=== PATIENT | male | born 1965 | race Caucasian/White ===

== ENCOUNTER 2018-02-05 19:42 | Emergency (ER) | payer MEDICAID ==
[2018-02-05] MEDS ORDERED: fentaNYL 100 MCG/2 ML SDV IVPUSH ONE (19:49)
[2018-02-05] MEDS ORDERED: Ondansetron 4 MG/2 ML SDV IVPUSH ONE (20:07)
--- NOTE | 2018-02-05 20:08 | EDM.PDOC ---
ED HPI GENERAL MEDICAL PROBLEM - General Chief Complaint: Upper Extremity Injury/Pain Stated Complaint: SMASHED LEFT HAND Time Seen by Provider: 02/05/18 19:49 Source of Information: Reports: Patient History Limitations: Reports: No Limitations - History of Present Illness INITIAL COMMENTS - FREE TEXT/NARRATIVE: 52 y/o M presents with L arm/hand injury. Was working on moving an old combine. States the arm of the combine swung unexpectedly and struck in in the LUE. Primarily hit him in the left hand and wrist area. States his thumb and pinky finger were both forcibly bent back into a unnatural position. He pulled on the thumb and pinky to reduce them to a normal position. This was very painful. Continues to have severe pain at the base of the left thumb, base of the left pinky, and throughout the wrist area. Also has mild pain in left forearm. Denies additional injury. No numbness but has some tingling in the tip of the left thumb and pinky fingers. Able to move all fingers but has severe pain with left thumb and pinky movements. He was wearing a glove when the injury occurred. Tried to remove it but had severe pain so left glove in place. Denies head injury or any additional injury. He is right hand dominant. No recent illness. Left Hand Pain Score (Numeric/FACES): 10 - Related Data Allergies Allergy/AdvReac Type Severity Reaction Status Date / Time promethazine [From Phenergan] Allergy Bradycardia Verified 02/05/18 19:58 codeine AdvReac Nausea Verified 02/05/18 19:58 oxycodone [From OxyContin] AdvReac Nausea Verified 02/05/18 19:58 Home Meds: Home Meds Flecainide [Tambocor] 100 mg PO BID 02/05/18 [History] Ondansetron [Zofran ODT] 4 mg PO Q6H PRN #24 tab.dis 02/05/18 [Rx] oxyCODONE 5 mg PO 5XDAY PRN #24 tab 02/05/18 [Rx] Review of Systems - Review of Systems Review Of Systems: See Below Constitutional: Reports: No Symptoms Eyes: Reports: No Symptoms Ears: Reports: No Symptoms Nose: Reports: No Symptoms Mouth/Throat: Reports: No Symptoms Respiratory: Reports: No Symptoms Cardiovascular: Denies: Chest Pain GI/Abdominal: Denies: Abdominal Pain Musculoskeletal: Reports: Arm Pain, Hand Pain. Denies: Shoulder Pain Skin: Denies: Wound Neurological: Denies: Dizziness Psychiatric: Reports: No Symptoms ED EXAM, GENERAL - Physical Exam Exam: See Below Exam Limited By: No Limitations General Appearance: Alert, WD/WN, No Apparent Distress Eye Exam: Bilateral Eye: Normal Inspection Ears: Normal External Exam Nose: Normal Inspection Throat/Mouth: Normal Inspection, Normal Oropharynx, Normal Voice, No Airway Compromise Head: Atraumatic, Normocephalic Neck: Normal Inspection, Supple, Non-Tender, Full Range of Motion Respiratory/Chest: No Respiratory Distress, Lungs Clear, Normal Breath Sounds, Chest Non-Tender Cardiovascular: Normal Peripheral Pulses, Regular Rate, Rhythm, No Edema, No Murmur GI/Abdominal: Soft, Non-Tender, No Distention. No: Rebound Back Exam: Normal Inspection. No: Vertebral Tenderness Extremities: Other (LUE: No elbow TTP, effusion, or deformity. Skin intact throughout LUE. + mild mid forearm soft tissue swelling, mild bony TTP along the ulna, no deformity. + soft tissue swelling about the wrist. +TTP diffusely about the wrist. Limited ROM at the wrist due to pain. +severe TTP at the base of the L thumb. No deformtiy. Limited ROM due to pain. Sensation intact. + severe TTP at the base ofthe L pinky finger. +mild soft tissue swelling. No deformtiy. Limited ROM due to pain. Ring, middle, and index fingers are nontender. No additional extremity abnormality. ) Neurological: Alert, Normal Cognition, No Motor/Sensory Deficits Psychiatric: Normal Affect, Normal Mood Skin Exam: Warm, Dry, Intact, Normal Color, No Rash ED TRAUMA EXTREMITY PROCEDURES - Splinting Left Upper Extremity Splint Site: left arm Pre-Procedure NV Status: Normal Post-Procedure NV Status: Normal Splint Material: Plaster Splint Design: Thumb Spica, Sugar Tong Applied & Form Fitted By: Provider Provider Post-Splint Application NV Check: NV Status Normal, Good Position Complications: No Course - Vital Signs Last Recorded V/S: Last Vital Signs Temp 36.8 C 02/05/18 19:50 Pulse 93 02/05/18 19:50 Resp 18 02/05/18 19:50 BP 163/113 H 02/05/18 19:50 Pulse Ox 99 05/14/18 19:50 - Orders/Labs/Meds Orders: Active Orders 24 hr Category Date Time Status Forearm 2V Lt [CR] Stat Exams 02/05/18 20:07 Taken Hand Comp Min 3V Lt [CR] Stat Exams 02/05/18 20:07 Taken Wrist Comp Min 3V Lt [CR] Stat Exams 02/05/18 20:07 Taken DME for Discharge [COMM] Stat Oth 02/05/18 21:36 Ordered Meds: Medications Discontinued Medications Generic Name Dose Route Start Last Admin Trade Name Dina PRN Reason Stop Dose Admin Fentanyl 100 mcg 02/05/18 19:49 02/05/18 19:52 Sublimaze IVPUSH 02/05/18 19:50 100 mcg ONETIME ONE Administration Hydromorphone HCl 1 mg 02/05/18 20:09 02/05/18 20:13 Dilaudid IVPUSH 02/05/18 20:10 1 mg ONETIME ONE Administration Hydromorphone HCl 0.5 mg 02/05/18 21:01 02/05/18 21:11 Dilaudid IVPUSH 02/05/18 21:02 0.5 mg ONETIME ONE Administration Ondansetron HCl 4 mg 02/05/18 20:07 02/05/18 20:16 Zofran IVPUSH 02/05/18 20:08 4 mg ONETIME ONE Administration - Re-Assessments/Exams Free Text/Narrative Re-Assessment/Exam: 02/05/18 22:46 XR's of the left forearm, wrist, and hand reviewed. Patient has a linear lucency that tracks in an elliptical longitudinal shape through the mid radius shaft which I think may represent a nondisplaced fracture. He also has a scaphoid fracture. There is also a lucency at the base of the thumb metacarpal which may be a nondisplaced fracture. He also has a base of the 5th metacarpal fracture, mildly dislocated. I placed him in a sugar tong splint with thumb spica. Advised him to f/u with orthopedics. Departure - Departure Time of Disposition: 22:08 Disposition: Home, Self-Care 01 Clinical Impression: Scaphoid fracture, wrist, closed Qualifiers: Encounter type: initial encounter Scaphoid bone location: middle third Fracture alignment: nondisplaced Laterality: left Qualified Code(s): S62.025A - Nondisplaced fracture of middle third of navicular [scaphoid] bone of left wrist , initial encounter for closed fracture Metacarpal bone fracture Qualifiers: Encounter type: initial encounter Metacarpal bone: fifth Fracture type: closed Metacarpal location: base Fracture alignment: displaced Laterality: left Qualified Code(s): S62.317A - Displaced fracture of base of fifth metacarpal bone, left hand, initial encounter for closed fracture Radius shaft fracture Qualifiers: Encounter type: initial encounter Fracture type: closed Fracture morphology: oblique Fracture alignment: nondisplaced Laterality: left Qualified Code(s): S52.335A - Nondisplaced oblique fracture of shaft of left radius, initial encounter for closed fracture - Discharge Information Prescriptions: Ondansetron [Zofran ODT] 4 mg PO Q6H PRN #24 tab.dis PRN Reason: Nausea oxyCODONE 5 mg PO 5XDAY PRN #24 tab PRN Reason: Pain Instructions: Cast or Splint Care, Adult, Scaphoid Fracture Referrals: PCP,Not In Area [Primary Care Provider] - Forms: ED Department Discharge Additional Instructions: 1. Follow up with Dr. Barnett either later this week or early next week. Call [phone] to schedule. 2. Keep splint dry at all times. 3. Take percocet or oxycodone as prescribed for pain. No driving or working while taking this medication as it could make you sleepy or confused. 4. Keep arm elevated when possible to reduce swelling 5. Return to the ED as needed for any new concerning symptoms - My Orders Last 24 Hours: My Active Orders 02/05/18 20:07 Forearm 2V Lt [CR] Stat Hand Comp Min 3V Lt [CR] Stat Wrist Comp Min 3V Lt [CR] Stat 02/05/18 21:36 DME for Discharge [COMM] Stat - Assessment/Plan Last 24 Hours: My Active Orders 02/05/18 20:07 Forearm 2V Lt [CR] Stat Hand Comp Min 3V Lt [CR] Stat Wrist Comp Min 3V Lt [CR] Stat 02/05/18 21:36 DME for Discharge [COMM] Stat
[2018-02-05] MEDS ORDERED: HYDROmorphone 0.5 MG/0.5 ML SYRINGE IVPUSH ONE ×2 (20:09→21:01)
--- NOTE | 2018-02-06 07:28 | CR ---
Left wrist: Four views of the left wrist were obtained. Comparison: No prior wrist exam. Joint space narrowing is noted between the distal radius and navicular bone. Well-corticated bony density is seen off the posterior wrist which is felt compatible with dystrophic calcification from old injury. Mild deformity is seen at the base of the first metacarpal which likely represents old healed fracture. No acute abnormality is appreciated. Impression: 1. Chronic findings as noted above. 2. No acute bony abnormality is identified. Diagnostic code #2
--- NOTE | 2018-02-06 07:28 | CR ---
Left hand: Four views of the left hand were obtained. Orthopedic screws are seen within the base of the proximal phalanx of the thumb. Joint space narrowing is noted between the navicular bone and radius. Well-corticated bony density which appears old is noted off the posterior wrist. Impression: 1. Degenerative change as noted above. Evidence of prior surgery and old trauma. 2. Nothing acute is appreciated on left hand study. Diagnostic code #2
--- NOTE | 2018-02-06 07:28 | CR ---
Left forearm: Two views of the left forearm were obtained. Comparison: No prior studies. Joint space narrowing is noted between the distal radius and navicular bone. No acute fracture or other bony abnormality is seen. Soft tissue swelling is noted. Impression: 1. No acute bony abnormality is seen. Other incidental findings as noted above. Diagnostic code #2
== END 2018-02-05 22:15 | disposition home or self-care (01) ==
LOC: JD.ED 19:42
DX: S62.025A Nondisplaced fracture of middle third of navicular [scaphoid] bone of left wrist, initial encounter for closed fracture (principal); S62.317A Displaced fracture of base of fifth metacarpal bone, left hand, initial encounter for closed fracture; S52.335A Nondisplaced oblique fracture of shaft of left radius, initial encounter for closed fracture; Z88.8 Allergy status to other drugs, medicaments and biological substances; Z88.5 Allergy status to narcotic agent; W23.1XXA Caught, crushed, jammed, or pinched between stationary objects, initial encounter
CPT/HCPCS: 29125; 73090; 73110; 73130; 96374; 96375; 96376; 99284; J1170; J2405; J3010

== ENCOUNTER 2018-02-26 17:38 | Emergency (ER) | payer MEDICAID ==
--- NOTE | 2018-02-26 18:32 | EDM.PDOC ---
<Diana Manriquez - Last Filed: 02/28/18 17:04> ED HPI GENERAL MEDICAL PROBLEM - General Chief Complaint: Respiratory Problem Stated Complaint: FLU LIKE SYMPTOMS Time Seen by Provider: 02/26/18 19:00 Source of Information: Reports: Patient History Limitations: Reports: No Limitations - History of Present Illness INITIAL COMMENTS - FREE TEXT/NARRATIVE: 52 yo male presents with flu-like symptoms x 3 days. He reports fever, chills, bodyaches and sore joints, as well as productive cough. He denies SOB or wheezing. 3 days ago he was working on an old barn around mouse and raccoon feces without a respiratory mask. He reports nausea and diarrhea. He has not been able to eat or drink much fluid in the past 3 days. He has a dry mouth and ear pain as well. He c/o L ear pain which has been an ongoing issue but worse in the past few days with decreased hearing in that ear. He reports nasal congestion and an irritated throat from frequent coughing. Onset: Gradual Duration: Day(s): (3) Quality: Reports: Ache Severity: Moderate Improves with: Reports: None Worsens with: Reports: Breathing, Movement Associated Symptoms: Reports: cough w sputum, Fever/Chills, Loss of Appetite, Malaise, Nausea/Vomiting Generalized Pain Score (Numeric/FACES): 8 - Related Data Allergies Allergy/AdvReac Type Severity Reaction Status Date / Time promethazine [From Phenergan] Allergy Bradycardia Verified 02/26/18 18:10 codeine AdvReac Nausea Verified 02/26/18 18:10 oxycodone [From OxyContin] AdvReac Nausea Verified 02/26/18 18:10 Home Meds: Home Meds Flecainide [Tambocor] 100 mg PO BID 02/05/18 [History] Past Medical History - Past Health History Medical/Surgical History: Denies Medical/Surgical History Cardiovascular History: Reports: Other (See Below) Other Cardiovascular History: tachycardia Social & Family History - Family History Family Medical History: Noncontributory - Tobacco Use Smoking Status *Q: Current Every Day Smoker Years of Tobacco use: 30 Packs/Tins Daily: 2 - Caffeine Use Caffeine Use: Reports: Coffee - Recreational Drug Use Recreational Drug Use: No ED ROS GENERAL - Review of Systems Review Of Systems: See Below Constitutional: Reports: Fever, Chills, Malaise, Weakness, Fatigue, Decreased Appetite HEENT: Reports: Ear Pain (Left) Respiratory: Reports: Cough. Denies: Shortness of Breath, Wheezing Cardiovascular: Reports: No Symptoms. Denies: Chest Pain, Edema GI/Abdominal: Reports: Abdominal Pain, Diarrhea, Decreased Appetite, Nausea, Vomiting. Denies: Black Stool, Bloody Stool : Reports: No Symptoms Musculoskeletal: Reports: Other (all over body pain and aches) Skin: Reports: No Symptoms. Denies: Wound, Lesions Neurological: Reports: Headache, Weakness. Denies: Confusion, Dizziness Psychiatric: Reports: No Symptoms Hematologic/Lymphatic: Reports: No Symptoms Immunologic: Reports: No Symptoms ED EXAM, GENERAL - Physical Exam Exam: See Below Exam Limited By: No Limitations General Appearance: Alert, WD/WN, Anxious, Mild Distress Ears: Normal External Exam Ear Exam: Bilateral Ear: Other (cerumen impaction bilaterally L>R) Nose: Normal Inspection Throat/Mouth: Normal Inspection, Normal Lips, Normal Oropharynx Head: Atraumatic, Normocephalic Neck: Normal Inspection, Supple, Full Range of Motion, Lymphadenopathy (L) ( submandibular) Respiratory/Chest: No Respiratory Distress, Normal Breath Sounds, No Accessory Muscle Use. No: Decreased Breath Sounds, Wheezing Cardiovascular: Normal Peripheral Pulses, Regular Rate, Rhythm, No Edema, No Murmur, No Rub GI/Abdominal: Soft, No Distention, Tender Extremities: Normal Inspection, No Pedal Edema, Limited Range of Motion ( secondary to entire body pain) Neurological: Alert, Oriented, No Motor/Sensory Deficits Psychiatric: Normal Affect Skin Exam: Warm, Dry, Normal Color Course - Vital Signs Last Recorded V/S: Last Vital Signs Temp 99.4 F 02/26/18 18:07 Pulse 82 02/26/18 18:07 Resp 16 02/26/18 18:07 BP 118/90 02/26/18 18:07 Pulse Ox 95 02/26/18 18:07 - Orders/Labs/Meds Labs: Laboratory Tests 02/26/18 02/26/18 02/26/18 Range/Units 19:05 19:05 19:25 WBC 6.00 (4.23-9.07) K/mm3 RBC 4.81 (4.63-6.08) M/mm3 Hgb 14.5 (13.7-17.5) gm/L Hct 42.6 (40.1-51.0) % MCV 88.6 (79.0-92.2) fl MCH 30.1 (25.7-32.2) pg MCHC 34.0 (32.2-35.5) g/dl RDW Std Deviation 43.5 (35.1-43.9) fL Plt Count 230 (163-337) K/mm3 MPV 9.5 (9.4-12.3) fl Neutrophils % (Manual) 66 H (40-60) % Lymphocytes % (Manual) 26 (20-40) % Monocytes % (Manual) 4 (2-10) % Eosinophils % (Manual) 2 (0.8-7.0) % Basophils % (Manual) 2 H (0.2-1.2) Platelet Estimate Adequate RBC Morph Comment Normal ESR 19 H (0-15) mm/hr Sodium (136-145) mEq/L Potassium (3.5-5.1) mEq/L Chloride (98-107) mEq/L Carbon Dioxide (21-32) mEq/L Anion Gap (5-15) BUN (7-18) mg/dL Creatinine (0.7-1.3) mg/dL Est Cr Clr Drug Dosing Estimated GFR (MDRD) (>60) mL/min BUN/Creatinine Ratio (14-18) Glucose (74-106) mg/dL Lactic Acid (0.4-2.0) mmol/L Calcium (8.5-10.1) mg/dL Total Bilirubin (0.2-1.0) mg/dL AST (15-37) U/L ALT (16-63) U/L Alkaline Phosphatase (46-116) U/L Creatine Kinase (39-308) U/L C-Reactive Protein (<1.0) mg/dL Total Protein (6.4-8.2) g/dl Albumin (3.4-5.0) g/dl Globulin gm/dL Albumin/Globulin Ratio (1-2) Urine Color (Yellow) Urine Appearance (Clear) Urine pH (5.0-8.0) Ur Specific [place] (1.005-1.030) Urine Protein (Negative) Urine Glucose (UA) (Negative) Urine Ketones (Negative) Urine Occult Blood (Negative) Urine Nitrite (Negative) Urine Bilirubin (Negative) Urine Urobilinogen (0.2-1.0) Ur Leukocyte Esterase (Negative) Urine RBC (0-5) /hpf Urine WBC (0-5) /hpf Ur Epithelial Cells (0-5) /hpf Urine Bacteria (FEW) /hpf Urine Mucus (FEW) /hpf Urine Opiates Screen (NEGATIVE) Ur Buprenorphine Scrn (NEGATIVE) Ur Oxycodone Screen (NEGATIVE) Urine Methadone Screen (NEGATIVE) Ur Propoxyphene Screen (NEGATIVE) Ur Barbiturates Screen (NEGATIVE) Ur Tricyclics Screen (NEGATIVE) Ur Phencyclidine Scrn (NEGATIVE) Ur Amphetamine Screen (NEGATIVE) U Methamphetamines Scrn (NEGATIVE) U Benzodiazepines Scrn (NEGATIVE) U Cocaine Metab Screen (NEGATIVE) U Marijuana (THC) Screen (NEGATIVE) Ethyl Alcohol (0.00) gm% Mycoplasma pneumon IgM Negative (NEGATIVE) 02/26/18 02/26/18 02/26/18 Range/Units 19:25 19:25 19:25 WBC (4.23-9.07) K/mm3 RBC (4.63-6.08) M/mm3 Hgb (13.7-17.5) gm/L Hct (40.1-51.0) % MCV (79.0-92.2) fl MCH (25.7-32.2) pg MCHC (32.2-35.5) g/dl RDW Std Deviation (35.1-43.9) fL Plt Count (163-337) K/mm3 MPV (9.4-12.3) fl Neutrophils % (Manual) (40-60) % Lymphocytes % (Manual) (20-40) % Monocytes % (Manual) (2-10) % Eosinophils % (Manual) (0.8-7.0) % Basophils % (Manual) (0.2-1.2) Platelet Estimate RBC Morph Comment ESR (0-15) mm/hr Sodium 138 (136-145) mEq/L Potassium 3.7 (3.5-5.1) mEq/L Chloride 104 (98-107) mEq/L Carbon Dioxide 24 (21-32) mEq/L Anion Gap 13.7 (5-15) BUN 23 H (7-18) mg/dL Creatinine 0.9 (0.7-1.3) mg/dL Est Cr Clr Drug Dosing TNP Estimated GFR (MDRD) > 60 (>60) mL/min BUN/Creatinine Ratio 25.6 H (14-18) Glucose 94 (74-106) mg/dL Lactic Acid (0.4-2.0) mmol/L Calcium 8.4 L (8.5-10.1) mg/dL Total Bilirubin 0.3 (0.2-1.0) mg/dL AST 12 L (15-37) U/L ALT 25 (16-63) U/L Alkaline Phosphatase 83 (46-116) U/L Creatine Kinase (39-308) U/L C-Reactive Protein 3.2 H* (<1.0) mg/dL Total Protein 6.9 (6.4-8.2) g/dl Albumin 3.5 (3.4-5.0) g/dl Globulin 3.4 gm/dL Albumin/Globulin Ratio 1.0 (1-2) Urine Color Yellow (Yellow) Urine Appearance Clear (Clear) Urine pH 6.0 (5.0-8.0) Ur Specific [place] > or = 1.030 (1.005-1.030) Urine Protein 1+ H (Negative) Urine Glucose (UA) Negative (Negative) Urine Ketones Negative (Negative) Urine Occult Blood Negative (Negative) Urine Nitrite Negative (Negative) Urine Bilirubin Negative (Negative) Urine Urobilinogen 0.2 (0.2-1.0) Ur Leukocyte Esterase Negative (Negative) Urine RBC 0-5 (0-5) /hpf Urine WBC 0-5 (0-5) /hpf Ur Epithelial Cells 0-5 (0-5) /hpf Urine Bacteria Not seen (FEW) /hpf Urine Mucus Not seen (FEW) /hpf Urine Opiates Screen Negative (NEGATIVE) Ur Buprenorphine Scrn Negative (NEGATIVE) Ur Oxycodone Screen Negative (NEGATIVE) Urine Methadone Screen Negative (NEGATIVE) Ur Propoxyphene Screen Negative (NEGATIVE) Ur Barbiturates Screen Negative (NEGATIVE) Ur Tricyclics Screen Negative (NEGATIVE) Ur Phencyclidine Scrn Negative (NEGATIVE) Ur Amphetamine Screen Negative (NEGATIVE) U Methamphetamines Scrn Negative (NEGATIVE) U Benzodiazepines Scrn Negative (NEGATIVE) U Cocaine Metab Screen Negative (NEGATIVE) U Marijuana (THC) Screen Negative (NEGATIVE) Ethyl Alcohol (0.00) gm% Mycoplasma pneumon IgM (NEGATIVE) 06/01/1002/26/18 02/26/18 Range/Units 19:25 19:25 19:35 WBC (4.23-9.07) K/mm3 RBC (4.63-6.08) M/mm3 Hgb (13.7-17.5) gm/L Hct (40.1-51.0) % MCV (79.0-92.2) fl MCH (25.7-32.2) pg MCHC (32.2-35.5) g/dl RDW Std Deviation (35.1-43.9) fL Plt Count (163-337) K/mm3 MPV (9.4-12.3) fl Neutrophils % (Manual) (40-60) % Lymphocytes % (Manual) (20-40) % Monocytes % (Manual) (2-10) % Eosinophils % (Manual) (0.8-7.0) % Basophils % (Manual) (0.2-1.2) Platelet Estimate RBC Morph Comment ESR (0-15) mm/hr Sodium (136-145) mEq/L Potassium (3.5-5.1) mEq/L Chloride (98-107) mEq/L Carbon Dioxide (21-32) mEq/L Anion Gap (5-15) BUN (7-18) mg/dL Creatinine (0.7-1.3) mg/dL Est Cr Clr Drug Dosing Estimated GFR (MDRD) (>60) mL/min BUN/Creatinine Ratio (14-18) Glucose (74-106) mg/dL Lactic Acid 0.4 (0.4-2.0) mmol/L Calcium (8.5-10.1) mg/dL Total Bilirubin (0.2-1.0) mg/dL AST (15-37) U/L ALT (16-63) U/L Alkaline Phosphatase (46-116) U/L Creatine Kinase 198 (39-308) U/L C-Reactive Protein (<1.0) mg/dL Total Protein (6.4-8.2) g/dl Albumin (3.4-5.0) g/dl Globulin gm/dL Albumin/Globulin Ratio (1-2) Urine Color (Yellow) Urine Appearance (Clear) Urine pH (5.0-8.0) Ur Specific [place] (1.005-1.030) Urine Protein (Negative) Urine Glucose (UA) (Negative) Urine Ketones (Negative) Urine Occult Blood (Negative) Urine Nitrite (Negative) Urine Bilirubin (Negative) Urine Urobilinogen (0.2-1.0) Ur Leukocyte Esterase (Negative) Urine RBC (0-5) /hpf Urine WBC (0-5) /hpf Ur Epithelial Cells (0-5) /hpf Urine Bacteria (FEW) /hpf Urine Mucus (FEW) /hpf Urine Opiates Screen (NEGATIVE) Ur Buprenorphine Scrn (NEGATIVE) Ur Oxycodone Screen (NEGATIVE) Urine Methadone Screen (NEGATIVE) Ur Propoxyphene Screen (NEGATIVE) Ur Barbiturates Screen (NEGATIVE) Ur Tricyclics Screen (NEGATIVE) Ur Phencyclidine Scrn (NEGATIVE) Ur Amphetamine Screen (NEGATIVE) U Methamphetamines Scrn (NEGATIVE) U Benzodiazepines Scrn (NEGATIVE) U Cocaine Metab Screen (NEGATIVE) U Marijuana (THC) Screen (NEGATIVE) Ethyl Alcohol 0.00 (0.00) gm% Mycoplasma pneumon IgM (NEGATIVE) Meds: Medications Discontinued Medications Generic Name Dose Route Start Last Admin Trade Name Freq PRN Reason Stop Dose Admin Hydromorphone HCl 0.5 mg 02/26/18 18:49 Dilaudid IVPUSH 02/26/18 18:50 ONETIME ONE Sodium Chloride 1,000 mls @ 999 mls/hr 02/26/18 18:53 Normal Saline IV 02/26/18 19:53 ONETIME ONE Sodium Chloride 10 ml 02/26/18 18:49 Saline Flush FLUSH ASDIRECTED PRN Keep Vein Open Departure - Departure Disposition: Home, Self-Care 01 Clinical Impression: Generalized body aches, Acute viral syndrome, URI with cough and congestion - Discharge Information Referrals: PCP,Not In Area [Primary Care Provider] - Forms: ED Department Discharge Additional Instructions: See paper discharge documentation. <Abhilash Donahue O - Last Filed: 03/01/18 11:18> ED HPI GENERAL MEDICAL PROBLEM - General Source of Information: Reports: Patient History Limitations: Reports: No Limitations Course - Re-Assessments/Exams Free Text/Narrative Re-Assessment/Exam: Agree with history and physical findings by PA student. I personally obtained history and also examined the patient. EKG sinus rhythm incomplete right bundle branch block. No acute ST changes noted. No previous EKG to compare with. Fishbowl is down. Labs reviewed: Lactic acid 0.4, BUN 23, sodium 138, potassium 3.7, glucose 94, creatinine 0.89, CRP 3.2, urine drug tox negative, UA negative for infection. Specific gravity greater than 1.030. White blood cell count 6, hemoglobin 14.5, platelet count 230, neutrophil percentage is 66, no bands. CK 198. 2024 Per nursing staff patients symptoms are improving. I have asked for fluids to be ran in at 999 mls/hr. ESR: 19 CXR/Abdomen series: Reviewed with Dr. Moon with no concerning findings. Final interpretation is pending. Mycoplasma: negative. Influenza screen was not obtained. Influenza came back negative. 2324 blood pressure 112/76, heart rate 66, SPO2 95%. On reassessment patient is resting comfortably in bed. Upon awakening he states he feels much better after the IV fluids. Patient is ready be discharged home. He has a right present. Discharge instructions as documented. [place] and [place] virus are still pending. Hell be notified once results are present. The patient remained hemodynamically stable while under my care in the E.D. I discussed the concerning symptoms for which to returnto the E.D. with the patient/family. The patient/family verbalized understanding. All questions were answered. Departure - Departure Time of Disposition: 23:24 Condition: Good
[2018-02-26] MEDS ORDERED: Sodium Chloride 0.9% 10 ML Syringe FLUSH PRN (18:49)
[2018-02-26] MEDS ORDERED: HYDROmorphone 0.5 MG/0.5 ML SYRINGE IVPUSH ONE (18:49)
[2018-02-26] MEDS ORDERED: Sodium Chloride 0.9% 1,000 ML IV ONE (18:53)
--- NOTE | 2018-02-27 10:26 | CR ---
Abdominal series: Supine and upright views of the abdomen were obtained as well as frontal view of the chest. Comparison: No prior study. Heart size and mediastinum are normal. Lungs are clear. Old healed right distal clavicle fracture is seen. Prior lumbar spine surgery is noted. Joint spaces within the left hip are slightly narrowed. Scattered gas within colon and small bowel is seen. Findings are felt to remain nonspecific. Calcifications are seen within the pelvis compatible with phleboliths. Impression: 1. Incidental findings. Nothing acute is appreciated on abdominal series. Diagnostic code #2
== END 2018-02-26 23:35 | disposition home or self-care (01) ==
LOC: JD.ED 17:38
DX: J06.9 Acute upper respiratory infection, unspecified (principal); B34.9 Viral infection, unspecified; F17.210 Nicotine dependence, cigarettes, uncomplicated; Z88.5 Allergy status to narcotic agent
CPT/HCPCS: 36415; 74022; 80053; 80306; 81001; 82550; 83605; 85007; 85027; 85652; 86140; 86738; 87040; 87804; 93005; 96361; 96374; 99284; G0480; J1170; J7040